=== PATIENT | male | born 1970 | race Caucasian/White ===

== ENCOUNTER 2024-03-05 09:05 | Observation (INO) ==
--- NOTE | 2024-03-05 09:22 | ED.PDOC ---
General ED Provider: Dr. GITA NAVA MD Chief Complaint: Headache Stated Complaint: Patient is a 53-year-old male that reported to the emergency department with a headache x 2 days. Patient stated that yesterday he started to have vision changes in the right eye due to his headache. Patient stated that he does have a history of migraines but has not had one in a long time. Patient also states that he has a history of hypertension but does not take blood pressure medications and has not taken them in over a year. Patient stated that for his headaches he is trying to take Lortab and [id number] NSAIDs with minimal relief. Patient was found to have a blood pressure of 188/123 in the emergency department today. Patient states that most of his headache is frontal and around his right eye. Patient denied any falls or loss of consciousness recently. Patient denies anything making his headache better. Patient states that exertion makes his headaches worse. Patient is also stated that he has had some shortness of breath with exertion that is intermittent. Patient states that he smokes 2 packs of cigarettes daily. Patient denies any chest pain, nausea, vomiting, diarrhea, dizziness, syncope, loss of consciousness, fever, sore throat, or any other acute symptoms not mentioned in the HPI. Time Seen by Provider: 03/05/24 09:06 Mode of Arrival: Walk-In Information Source: Patient Exam Limitations: No limitations Primary Care Provider: RITA MAZARIEGOS Nursing and Triage Documentation Reviewed and Agree: Yes Does Patient Take Opioids?: Yes Is Patient Opioid Naive?: No What is Opioid Naive?: *Opioid Naive implies the patient is not already taking opioids or not chronically receiving opioids on a daily basis. *PRN dosing is not "usually" associated with tolerance. *Patients are at higher risk of over-sedation and aspiration. Is Patient Opioid Tolerant?: No What is Opioid Tolerant?: *Opioid Tolerance implies less than the expected response to an opioid. *Acquired tolerance is defined by the patient taking 60mg of oral morphine daily (or equianalgesic dose of another opioid) for 1 week or more. *Often associated with chronic pain. *May take more than usual dose to achieve desired pain control. Review of Systems Review Of Systems Constitutional: Reports No symptoms Eyes: Reports Blurred vision (Right eye with headache) Ears, Nose, Mouth, Throat: Reports No symptoms Respiratory: Reports No symptoms Cardiac: Reports No symptoms GI: Reports No symptoms : Reports No symptoms Musculoskeletal: Reports No symptoms Skin: Reports No symptoms Neurological: Reports Headache (Predominantly frontal headache.) Endocrine: Reports No symptoms Hematologic/Lymphatic: Reports No symptoms All Other Systems: Reviewed and Negative Physical Exam Physical Exam Appearance: Reports Well-appearing, No pain distress and Well-nourished Ill-appearing: None Pain Distress: None Eyes: Reports KASEY, EOMI and Conjunctiva clear ENT: Reports Ears normal, Nose normal and Oropharynx normal Neck: Supple Respiratory: Reports Airway patent, Breath sounds clear, Breath sounds equal and Respirations nonlabored Cardiovascular: Reports RRR, Pulses normal, No rub and No murmur GI/: Reports Soft, Nontender, No masses, Bowel sounds normal and No Organomegaly Musculoskeletal: Reports Normal strength, ROM intact, No edema and No calf tenderness Skin: Reports Warm, Dry and Normal color Neurological: Reports Sensation intact, Motor intact, Reflexes intact, Cranial nerves intact, Alert and Oriented Psychiatric: Reports Affect appropriate and Mood appropriate NIH Stroke Scale 1a. Level of Consciousness: 0=Alert and keenly responsive 1b. Level of Consciousness Questions: 0=Answers correctly to two questions 1c. Level of Consciousness Commands: 0=Performs two tasks correctly 2. Best Gaze: 0=Normal 3. Visual: 0=No visual loss 4. Facial Palsy: 0=Normal 5a. Motor Left Arm: 0=No drift,arm holds 90 degrees for 10 sec., leg 30 degrees for 5 sec. 5b. Motor Right Arm: 0=No drift,arm holds 90 degrees for 10 sec., leg 30 degrees for 5 sec. 6a. Motor Left Le=No drift,arm holds 90 degrees for 10 sec., leg 30 degrees for 5 sec. 6b. Motor Right Le=No drift,arm holds 90 degrees for 10 sec., leg 30 degrees for 5 sec. 7. Limb Ataxia: 0=Absent 8. Sensory: 0=Normal 9. Best Language: 0=No aphasia 10. Dysarthria: 0=Normal 11. Extincion and Inattention: 0=Normal Stroke Scale Total: 0 Interpretation EKG Interpretation EKG Interpretation By: ED Physician Time of EKG #1: 09:28 Rate: Normal Rhythm: Sinus Ectopy: None [place]: NL ST Segment: Normal Radiology Interpretation Radiology Interpretation By: ED Physician Radiology Results: Negative Exam Interpreted: CXR Critical Care Note Critical Care Note Total Critical Care Time (mins): 60 Comments: Authorized and Performed by:Gita Nava MD, MPH Total critical care time: 60 minutes Due to a high probability of clinically significant, life threatening deterioration, the patient required my highest level of preparedness to intervene emergently and I personally spent this critical care time directly and personally managing the patient. This critical care time included obtaining a history; examining the patient; pulse oximetry; ordering and review of studies; arranging urgent treatment with development of a management plan; evaluation of patient's response to treatment; frequent reassessment; and, discussions with other providers. This critical care time was performed to assess and manage the high probability of imminent, life-threatening deterioration that could result in multi-organ failure. It was exclusive of separately billable procedures and treating other patients and teaching time. Please see MDM section and the rest of the note for further information on patient assessment and treatment. Course Course 03/05/24 09:23 03/05/24 09:23 Orders, Labs, Meds: Lab Review 03/05/24 03/05/24 09:23 09:25 WBC 9.75 RBC 5.15 Hgb 14.3 Hct 41.7 L MCV 81.0 MCH 27.8 MCHC 34.3 RDW Coeff of Darryl 12.8 Plt Count 224 Immature Gran % (Auto) 0.2 Neut % (Auto) 72.8 Lymph % (Auto) 21.4 Grainger % (Auto) 3.7 Eos % (Auto) 1.0 Baso % (Auto) 0.9 Neut # (Auto) 7.1 H Lymph # (Auto) 2.1 Grainger # (Auto) 0.4 Eos # (Auto) 0.1 Baso # (Auto) 0.1 Immature Gran # (Auto) 0.0 Sodium 138.8 Potassium 4.12 Chloride 101.8 Carbon Dioxide 27.2 Anion Gap 13.92 BUN 9.0 Creatinine 1.02 Estimated GFR (MDRD) 77.00 BUN/Creatinine Ratio 8.82 Glucose 105.9 Calcium 9.63 Total Bilirubin 0.51 AST 27.3 ALT 24.1 Alkaline Phosphatase 94.5 Troponin I < 0.012 NT-Pro-B Natriuret Pep 102 Total Protein 8.83 H Albumin 5.15 H Globulin 3.68 Albumin/Globulin Ratio 1.39 Influ A Molecular Assay Negative by naat Influ B Molecular Assay Negative by naat SARS CoV-2 RNA Rapid YUE Negative Orders Category Date Time Status EKG-(ED ONLY) Stat CARDIO 03/05/24 09:14 Completed ED APPLY O2 .ONCE EMERGENCY 03/05/24 09:14 Active ED TAKE OUT WAITER APPLIED .ONCE EMERGENCY 03/05/24 09:14 Active CBC W/ AUTO DIFF Stat LAB 03/05/24 09:23 Completed COMPREHENSIVE METABOLIC PANEL Stat LAB 03/05/24 09:23 Completed FLU A/B MOLECULAR Stat LAB 03/05/24 09:25 Completed NT-PROBNP(ED) Stat LAB 03/05/24 09:23 Completed SARS COV-2 RNA RAPID YUE Stat LAB 03/05/24 09:25 Completed TROPONIN I Stat LAB 03/05/24 09:23 Completed Hydralazine HCl Meds 03/05/24 09:14 Discontinued 10 mg IVP ONCE STA Labetalol HCl [Trandate] Meds 03/05/24 10:01 Discontinued 20 mg IVP ONCE ONE Nicardipine in NaCl, Iso-Osm [Cardene 20 mg/200 ml NaCl Meds 03/05/24 11:00 Active ] 20 mg in 200 ml IV TITRATION Sodium Chloride 0.9% [Sodium Chloride] 1,000 ml Meds 03/05/24 09:16 Discontinued IV BOLUS CHEST, 1V AP ONLY Stat RADS 03/05/24 09:[address] HEAD W/O CONTRAST Stat RADS 03/05/24 09:14 Completed Medications Generic Name Dose Route Start Last Admin Trade Name Freq PRN Reason Stop Dose Admin Nicardipine/Sodium Chloride 20 mg in 200 mls @ 50 mls/hr 03/05/24 11:00 03/05/24 10:50 Cardene 20 Mg/200 Ml Nacl IV 5 mg/hr TITRATION MERLYN 50 mls/hr Administration Protocol 5 MG/HR Discontinued Medications Generic Name Dose Route Start Last Admin Trade Name Freq PRN Reason Stop Dose Admin Hydralazine HCl 10 mg 03/05/24 09:14 03/05/24 09:27 Hydralazine Hcl 20 Mg/Ml Sdv IVP 03/05/24 09:15 10 mg ONCE STA Administration Sodium Chloride 1,000 mls @ 1,000 mls/hr 03/05/24 09:16 03/05/24 09:27 Sodium Chloride IV 03/05/24 10:15 1,000 mls/hr BOLUS ONE Administration Labetalol HCl 20 mg 03/05/24 10:01 03/05/24 10:09 Labetalol Hcl 20 Mg/4 Ml Disp.Syrin IVP 03/05/24 10:02 20 mg ONCE ONE Administration Vital Signs: Temp Pulse Resp BP Pulse Ox 03/05/24 10:01 76 20 201/97 H 97 03/05/24 09:10 97.8 F 97 18 188/127 H 100 Physician Progress Note: Patient is a 53-year-old male that reported to the emergency department with a headache x 2 days. Patient stated that yesterday he started to have vision changes in the right eye due to his headache. Patient stated that he does have a history of migraines but has not had one in a long time. Patient also states that he has a history of hypertension but does not take blood pressure medications and has not taken them in over a year. Patient stated that for his headaches he is trying to take Lortab and [id number] NSAIDs with minimal relief. Patient was found to have a blood pressure of 188/123 in the emergency department today. Patient states that most of his headache is frontal and around his right eye. Patient denied any falls or loss of consciousness recently. Patient denies anything making his headache better. Patient states that exertion makes his headaches worse. Patient is also stated that he has had some shortness of breath with exertion that is intermittent. Patient states that he smokes 2 packs of cigarettes daily. Patient denies any chest pain, nausea, vomiting, diarrhea, dizziness, syncope, loss of consciousness, fever, sore throat, or any other acute symptoms not mentioned in the HPI. -Due to the patient's headache with visual changes will order CT of the head without contrast to rule out bleed or other intracranial pathology. -Will give the patient IV fluids 1 L normal saline bolus. -Will order baseline labs, an EKG, and a chest x-ray. -Will give IV hydralazine 10 mg for BP of 188/125. -EKG shows normal sinus rhythm with a rate of 82 bpm. No acute diagnostic ST elevations noted. Normal axis noted. -CBC unremarkable. Chest x-ray shows no acute cardiopulmonary disease. -After the hydralazine the patient's blood pressure is still 201/97. Will give IV labetalol 20 mg. -After the labetalol treatment patient's blood pressure still 201/94. Will start a nicardipine drip at 5 mg/hr. -Will contact hospitalist for admission for hypertensive urgency. -CT of the head shows no acute intracranial bleed or pathology. [phone]) called hospitalist for admission for hypertensive urgency. Left message on her voicemail. Waiting for callback. [phone]) spoke to hospitalist about patient's current hypertensive urgency. Told her that we had tried IV labetalol 20 mg, and IV hydralazine 10 mg with no change in the patient's hypertensive urgency. Gave her the patient's current blood pressure of 204/104. Told hospitalist that we are starting patient on a nicardipine drip at 5 mg/h. Explained that the patient had a normal EKG with a negative troponin. Hospitalist has agreed to admit patient for inpatient services and telemetry monitoring. Discharge Plan Discharge Patient Disposition: ADMITTED INPATIENT Discharge Problem: Headache, Hypertensive urgency, Cigarette smoker, Hx of medication noncompliance Did you review [place] REGISTERED ASSOCIATE for ALL controlled substances?: Not Applicable ED Provider: GITA NAVA Condition: Stable Joshua Coma Scale Joshua Coma Scale Eye Opening Response: Spontaneously Best Verbal Response: Oriented to Time, Place, and Person Best Motor Resposne: Obeys Commands [place] Coma Scale Score Total: 15 Response Scores: Best Response = 15 Comatose Client = 8 or Less Totally Unresponsive = 3
[2024-03-05] MEDS: HYDRALAZINE HCL IVP STA (09:27)
[2024-03-05] MEDS: SODIUM CHLORIDE 1,000 ML IV ONE (09:27)
[2024-03-05 09:28] LABS: BASOPHILS # (AUTO) 0.1 K/uL (0-0.2); BASOPHILS % (AUTO) 0.9 % (0.0-3.0); EOSINOPHILS # (AUTO) 0.1 K/ul (0.0-0.7); HEMATOCRIT 41.7 % (42.0-52.0); HEMOGLOBIN 14.3 g/dl (14.0-18.0); IMMATURE GRANULOCYTE % (AUTO) 0.2 % (0.0-5.0); LYMPHOCYTES # (AUTO) 2.1 K/uL (0.60-3.4); LYMPHOCYTES % (AUTO) 21.4 (10.0-50.0); MEAN CORPUSCULAR HEMOGLOBIN 27.8 pg (27.0-31.0); MEAN CORPUSCULAR HGB CONC 34.3 (31.8-35.4); MONOCYTES # (AUTO) 0.4 K/uL (0.4-2.0); MONOCYTES % (AUTO) 3.7 (0-10); NEUTROPHILS # (AUTO) 7.1 K/ul (2.0-6.9); NEUTROPHILS % (AUTO) 72.8 % (42.2-75.2); PLATELET COUNT 224 10^3/uL (140-440); RDW COEFFICIENT OF VARIATION 12.8 % (11.6-14.8); RED BLOOD COUNT 5.15 10^6/ul (4.70-6.10); WHITE BLOOD COUNT 9.75 K/ul (4.2-10.2)
[2024-03-05 09:42] LABS: ALANINE AMINOTRANSFERASE 24.1 U/L (0-50); ALBUMIN 5.15 g/dL (3.5-5.0); ALKALINE PHOSPHATASE 94.5 U/L (38-126); ASPARTATE AMINO TRANSFERASE 27.3 U/L (17-59); BILIRUBIN,TOTAL 0.51 mg/dL (0.2-1.3); CALCIUM 9.63 mg/dL (8.4-10.2); CARBON DIOXIDE 27.2 mmol/L (22-30.0); CHLORIDE 101.8 mmol/L (98-107); CREATININE 1.02 mg/dL (0.60-1.10); GLUCOSE 105.9 mg/dL (74-106); POTASSIUM 4.12 mmol/L (3.5-5.1); SODIUM 138.8 mmol/L (134.5-145); TOTAL PROTEIN 8.83 g/dL (6.3-8.2)
[2024-03-05 09:53] LABS: MOLECULAR FLU A NEGATIVE BY NAAT (NEGATIVE); MOLECULAR FLU B NEGATIVE BY NAAT (NEGATIVE); SARS COV-2 RNA RAPID NAAT NEGATIVE (NEGATIVE)
[2024-03-05 09:53] LABS: TROPONIN I < 0.012 ng/ml (0.0000-0.120)
[2024-03-05] MEDS: TRANDATE IVP ONE (10:09)
--- NOTE | 2024-03-05 10:12 | DI ---
EXAM: CHEST RADIOGRAPH TECHNIQUE: Single frontal chest radiograph. HISTORY: Shortness of breath. COMPARISON: 04/06/2022 FINDINGS: Mild atelectasis of the left base. No pulmonary infiltrate is identified. No pleural effusion or pneumothorax is seen. Heart size is normal. No acute displaced rib fractures are identified. Eggshell calcification of the left upper quadrant, grossly stable, benign. IMPRESSION: 1. No acute findings in the chest.
--- NOTE | 2024-03-05 10:16 | CT ---
EXAM: CT HEAD WITHOUT CONTRAST. HISTORY: Headache for 2 days, visual changes. COMPARISON: None. TECHNIQUE: Multiple axial images of the brain were obtained from the skull base through the vertex w ithout intravenous contrast. Multiplanar reformats were provided. FINDINGS: There is no intracranial hemorrhage or extraaxial collection. The richter-white differentiat ion is maintained without evidence for acute large vascular territory infarction. The cortical sulci and basal cisterns are well visualized. There is no hydrocephalus, mass effect, or midline shift. The paranasal sinuses and mastoid air cells are clear. The calvarium is intact. IMPRESSION: No acute intracranial abnormality. All CT scans are performed using dose optimization techniques as appropriate to the performed exam an d include at least one of the following: Automated exposure control, adjustment of the mA and/or kV according t o size, and the use of iterative reconstruction technique.
[2024-03-05] MEDS: CARDENE 20 MG/200 ML NACL 20 MG/200 ML BAG IV SCH (10:50)
[2024-03-05 12:21] VITALS: BMI 27.7
[2024-03-05] MEDS ORDERED: CARDENE 20 MG/200 ML NACL 20 MG/200 ML BAG IV SCH (13:30)
[2024-03-05] MEDS ORDERED: PROCARDIA XL PO ONE (14:30)
[2024-03-05] MEDS: PROCARDIA XL PO ONE (14:46)
[2024-03-05] MEDS: TYLENOL PO PRN (14:47)
--- NOTE | 2024-03-05 17:38 | PCM ---
Date of Service Date Seen by Provider: 03/05/24 Admit Day/Time Admission Date: 03/05/24 Reason for Admission Chief Complaint: HYPERTENSION URGENCY Hospital Provider Hospital Provider: JERAMIE QUINTEROS, [facility] [place] Primary Care Physician: RITA MAZARIEGOS History of Present Illness History of Present Illness: 54 yo male presented to the ER with headache and blurry vision. Patient states that he has pmh of high blood pressure and took himself off of his blood pressure medication over a year ago because he "didn't like how it made him feel." Unsure what he was on previously. Initially BP was 200s/100s in ER. After multiple doses of hydralazine and labetalol with no effect, a cardene gtt was started. All labs and imaging unremarkable. Patient reports headache that starts in his neck and radiates to the top of his head and down to his forehead. Blurry vision has subsided at this time. Denies chest pain, sob, fever. Reports he does have lower extremity swelling on a regular basis. Admitted to med/surg observation. Checked EPIC for previously prescribed medications and patient was taking losartan 50 mg and atorvastatin 20 mg. Case Discussed With Case Discussed With: Patient's case was discussed with the ER Physicians, Dr. Nava. [facility] Medical History (Updated 03/05/24 @ 17:30 by JERAMIE QUINTEROS) Hypertension I10 - Essential (primary) hypertension (ICD-10) Hyperlipidemia E78.5 - Hyperlipidemia, unspecified (ICD-10) Family History MATERNAL GRANDMOTHER Hypercholesteremia Diabetes Hypertension Mother Hypertension PATERNAL GRANDFATHER Hypertension Social History Smoking and tobacco status: Current every day smoker Substance use type: marijuana Allergies Allergies Allergy/AdvReac Type Severity Reaction Status Date / Time No Known Allergies Allergy Unverified 03/05/24 09:18 Current Medications Home Medications clonidine HCl 0.1 mg tablet 0.1 mg PO BID #14 tabs 04/06/22 [Rx Confirmed 03/05/24 Last Taken Unknown] methylprednisolone 4 mg tablets in a dose pack (Medrol (Umair)) 4 mg PO DAILY #21 ea 04/06/22 [Rx Confirmed 03/05/24 Last Taken Unknown] aspirin 81 mg tablet,delayed release (Adult Aspirin Regimen) 81 mg PO DAILY 03/05/24 [History Confirmed 03/05/24 Last Taken Unknown] ibuprofen 200 mg tablet 200 mg PO 3-4XD PRN pain 03/05/24 [History Confirmed 03/05/24 Last Taken Unknown] Home Acetaminophen (Acetaminophen 325 Mg Tablet) 650 mg PO Q4H PRN PRN Reason: Mild Pain Last Admin: 03/05/24 14:47 Dose: 650 mg Hydralazine HCl (Hydralazine Hcl 20 Mg/Ml Sdv) 10 mg IVP Q6H PRN PRN Reason: Hypertension Nicardipine/Sodium Chloride (Cardene 20 Mg/200 Ml Nacl) 20 mg in 200 mls @ 50 mls/hr IV TITRATION MERLYN; Protocol Last Titration: 03/05/24 14:46 Dose: Infused Lisinopril (Lisinopril 10 Mg Tablet) 10 mg PO BID MERLYN Nifedipine (Nifedipine 30 Mg Tab.Er.24) 30 mg PO DAILY MERLYN Discontinued Medications Hydralazine HCl (Hydralazine Hcl 20 Mg/Ml Sdv) 10 mg IVP ONCE STA Stop: 03/05/24 09:15 Last Admin: 03/05/24 09:27 Dose: 10 mg Sodium Chloride (Sodium Chloride) 1,000 mls @ 1,000 mls/hr IV BOLUS ONE Stop: 03/05/24 10:15 Last Infusion: 03/05/24 12:50 Dose: Infused Labetalol HCl (Labetalol Hcl 20 Mg/4 Ml Disp.Syrin) 20 mg IVP ONCE ONE Stop: 03/05/24 10:02 Last Admin: 03/05/24 10:09 Dose: 20 mg Nifedipine (Nifedipine 30 Mg Tab.Er.24) 30 mg PO ONCE ONE Stop: 03/05/24 14:33 Last Admin: 03/05/24 14:46 Dose: 30 mg Opioid Naive vs. Tolerant Does Patient Take Opioids?: No Is Patient Opioid Naive?: Yes What is Opioid Naive?: *Opioid Naive implies the patient is not already taking opioids or not chronically receiving opioids on a daily basis. *PRN dosing is not "usually" associated with tolerance. *Patients are at higher risk of over-sedation and aspiration. Is Patient Opioid Tolerant?: No What is Opioid Tolerant?: *Opioid Tolerance implies less than the expected response to an opioid. *Acquired tolerance is defined by the patient taking 60mg of oral morphine daily (or equianalgesic dose of another opioid) for 1 week or more. *Often associated with chronic pain. *May take more than usual dose to achieve desired pain control. Review of Systems Constitutional: Reports No symptoms Head: Reports Normocephalic Eyes: Reports Blurred vision Ears: Reports No symptoms Nose: Reports No symptoms Mouth: Reports No symptoms Throat: Reports No symptoms Cardiovascular: Reports High Blood Pressure Respiratory: Reports No symptoms Gastrointestinal: Reports No symptoms Genitourinary: Reports No Symptoms Musculoskeletal: Reports No symptoms Endocrine: Reports No symptoms Hematology: Reports No symptoms Immunology: Reports No symptoms Neurological: Reports Headache Psychiatric: Reports No symptoms Physical examination Most Recent Vital Signs: Most Recent Vital Signs Temperature 97.9 F 03/05/24 12:12 Temperature Source Oral 03/05/24 12:12 Temperature Source Infrared 03/05/24 09:10 Pulse Rate 94 03/05/24 17:00 Respiratory Rate 16 03/05/24 12:12 Blood Pressure 168/86 H 03/05/24 17:00 Blood Pressure Mean 113 03/05/24 17:00 Blood Pressure Left Arm 174/93 03/05/24 12:12 Blood Pressure Location Left Arm 03/05/24 17:00 Blood Pressure Position Supine 03/05/24 17:00 O2 Sat by Pulse Oximetry 98 03/05/24 12:12 Oxygen Delivery Method Room Air 03/05/24 17:10 Height 5 ft 11 in 03/05/24 12:12 Weight 198 lb 11.2 oz 03/05/24 12:12 Telemetry Type Remote Telemetry 03/05/24 13:00 Telemetry Monitoring Continues 03/05/24 13:00 Telemetry Heart Rate 77 03/05/24 13:00 EKG MA Interval 0.16 03/05/24 13:00 EKG QRS Interval 0.10 03/05/24 13:00 Telemetry Strip Reading SR 03/05/24 13:00 Appearance: Positive No Apparent Distress and Alert and Oriented x3 Skin: Positive Warm and Good Color HEENT: Positive Normocephalic, Atraumatic and PERRLA Neck: Positive Supple and Midline Trachea Chest/Lungs: Positive Symmetrical With Equal Breath Sounds, Clear to Auscultation Bilaterally and Good Air Movement all 4 Lung North Heart: Positive RRR, Pulses Normal, No S3 Auscultated and No S4 Auscultated GI/: Positive Soft, Nontender, Bowel Sounds Normal and No Distention Musculoskeletal: Positive Normal Gait and Station Extremities: Positive Intact Peripheral Pulses, Stable Joints Without Laxity and Good ROM in All Joints Neurological: Positive Sensation Intact, Motor intact, Alert, Oriented and Muscle Strength 5/5 in Upper and Lower Extremities Bilaterally Labs This Visit Labs This Visit: Labs This Visit 03/05/24 03/05/24 09:23 09:25 WBC 9.75 RBC 5.15 Hgb 14.3 Hct 41.7 L MCV 81.0 MCH 27.8 MCHC 34.3 RDW Coeff of Darryl 12.8 Plt Count 224 Immature Gran % (Auto) 0.2 Neut % (Auto) 72.8 Lymph % (Auto) 21.4 Bee % (Auto) 3.7 Eos % (Auto) 1.0 Baso % (Auto) 0.9 Neut # (Auto) 7.1 H Lymph # (Auto) 2.1 Bee # (Auto) 0.4 Eos # (Auto) 0.1 Baso # (Auto) 0.1 Immature Gran # (Auto) 0.0 Sodium 138.8 Potassium 4.12 Chloride 101.8 Carbon Dioxide 27.2 Anion Gap 13.92 BUN 9.0 Creatinine 1.02 Estimated GFR (MDRD) 77.00 BUN/Creatinine Ratio 8.82 Glucose 105.9 Calcium 9.63 Total Bilirubin 0.51 AST 27.3 ALT 24.1 Alkaline Phosphatase 94.5 Troponin I < 0.012 NT-Pro-B Natriuret Pep 102 Total Protein 8.83 H Albumin 5.15 H Globulin 3.68 Albumin/Globulin Ratio 1.39 Influ A Molecular Assay Negative by naat Influ B Molecular Assay Negative by naat SARS CoV-2 RNA Rapid YUE Negative Imaging Imaging: EXAM: CHEST RADIOGRAPH FINDINGS: Mild atelectasis of the left base. No pulmonary infiltrate is identified. No pleural effusion or pneumothorax is seen. Heart size is normal. No acute displaced rib fractures are identified. Eggshell calcification of the left upper quadrant, grossly stable, benign. IMPRESSION: 1. No acute findings in the chest. EXAM: CT HEAD WITHOUT CONTRAST. FINDINGS: There is no intracranial hemorrhage or extraaxial collection. The richter-white differentiation is maintained without evidence for acute large vascular territory infarction. The cortical sulci and basal cisterns are well visualized. There is no hydrocephalus, mass effect, or midline shift. The paranasal sinuses and mastoid air cells are clear. The calvarium is intact. IMPRESSION: No acute intracranial abnormality. Review Statement Review Statement: I have independently reviewed and interpreted the labs/EKGs/imaging that were ordered by the ER provider. I have reviewed all outside records that are available currently in our EMR including imaging/notes/labs from previous visits. Plan Plan: 1. Hypertensive Urgency - cardene gtt per protocol completed, lisinopril bid and nifedipine ER daily - will adjust regimen if needed, hydralazine ordered prn for SBP>170 and DBP>90 2. Hyperlipidemia - chronic, not taking his medications DVT Prophylaxis: Ambulation Time Spent: Greater than 80 minutes spent with patient, 50% of the time spent with this patient was devoted to counseling and coordination of care. [facility] Plannin minutes spent discussing advance care planning. Smoking Cessation: 3-10 minutes spent discussing smoking cessation. Disposition: Admit to: Med/Surg Observation Full Code Discussed Plan of Care with Dr. Sonia Haile. Medications Medication Orders: Medications Ordered Category Date Time Status Acetaminophen [Tylenol] Meds 03/05/24 12:20 Active 650 mg PO Q4H PRN Hydralazine HCl Meds 03/05/24 14:36 Active 10 mg IVP Q6H PRN Lisinopril [Zestril] Meds 03/05/24 21:00 Active 10 mg PO BID Nicardipine in NaCl, Iso-Osm [Cardene 20 mg/200 ml NaCl Meds 03/05/24 11:00 Active ] 20 mg in 200 ml IV TITRATION Nifedipine [Procardia Xl] Meds 03/06/24 09:00 Active 30 mg PO DAILY
[2024-03-05] MEDS: HYDRALAZINE HCL IVP PRN (17:45)
[2024-03-05] MEDS ORDERED: TORADOL IVP ONE (18:34)
[2024-03-05] MEDS: LOPRESSOR IVP STA (18:34)
[2024-03-05] MEDS: TORADOL ONE (18:35)
[2024-03-05] MEDS: LOPRESSOR ONE (18:45)
[2024-03-05] MEDS: TORADOL IVP ONE (18:45)
[2024-03-05] MEDS: ZESTRIL PO SCH (20:18)
[2024-03-05] MEDS: NICODERM 21 MG TD SCH ×2 (20:18→21:04)
[2024-03-06] MEDS: TORADOL IVP PRN (00:39)
[2024-03-06 05:28] LABS: BASOPHILS # (AUTO) 0.1 K/uL (0-0.2); BASOPHILS % (AUTO) 0.7 % (0.0-3.0); EOSINOPHILS # (AUTO) 0.1 K/ul (0.0-0.7); EOSINOPHILS % (AUTO) 1.1 % (0.0-7.0); HEMATOCRIT 41.1 % (42.0-52.0); HEMOGLOBIN 13.9 g/dl (14.0-18.0); IMMATURE GRANULOCYTE % (AUTO) 0.4 % (0.0-5.0); LYMPHOCYTES % (AUTO) 23.8 (10.0-50.0); MEAN CORPUSCULAR HEMOGLOBIN 27.3 pg (27.0-31.0); MEAN CORPUSCULAR HGB CONC 33.8 (31.8-35.4); MEAN CORPUSCULAR VOLUME 80.7 fl (80.0-94.0); MONOCYTES # (AUTO) 0.3 K/uL (0.4-2.0); MONOCYTES % (AUTO) 3.5 (0-10); NEUTROPHILS % (AUTO) 70.5 % (42.2-75.2); PLATELET COUNT 214 10^3/uL (140-440); RDW COEFFICIENT OF VARIATION 12.7 % (11.6-14.8); RED BLOOD COUNT 5.09 10^6/ul (4.70-6.10); WHITE BLOOD COUNT 8.49 K/ul (4.2-10.2)
[2024-03-06 05:44] LABS: ALANINE AMINOTRANSFERASE 21.2 U/L (0-50); ALBUMIN 4.78 g/dL (3.5-5.0); ALKALINE PHOSPHATASE 89.9 U/L (38-126); ASPARTATE AMINO TRANSFERASE 25.2 U/L (17-59); BILIRUBIN,TOTAL 0.6 mg/dL (0.2-1.3); BLOOD UREA NITROGEN 11.8 mg/dL (9-20); CALCIUM 9.49 mg/dL (8.4-10.2); CARBON DIOXIDE 24.1 mmol/L (22-30.0); CHLORIDE 105.1 mmol/L (98-107); CREATININE 1.07 mg/dL (0.60-1.10); GLUCOSE 106.7 mg/dL (74-106); POTASSIUM 3.98 mmol/L (3.5-5.1); SODIUM 139.7 mmol/L (134.5-145)
[2024-03-06] MEDS: PROCARDIA XL PO SCH (08:23)
[2024-03-06] MEDS: NICODERM 21 MG TD SCH (08:23)
[2024-03-06 09:05] VITALS: BP 146/89; PULSE 79; RESP 18; TEMP 98.2
--- NOTE | 2024-03-06 09:44 | DCSUM ---
Admission Date Admission Date: 03/05/24 Discharge Date Discharge Date: 03/06/24 Admission Diagnosis Admission Diagnosis: 1. Hypertensive Urgency 2. Hyperlipidemia Discharge Diagnosis Discharge Diagnosis: 1. Hypertensive Urgency - Resolved 2. Hyperlipidemia - chronic, stable Hospital Provider Hospital Provider: JERAMIE QUINTEROS, [facility] [place] Primary Care Physician Primary Care Physician: RITA MAZARIEGOS Summary of History and Physical Summary of History and Physical: 54 yo male presented to the ER with headache and blurry vision. Patient states that he has pmh of high blood pressure and took himself off of his blood pressure medication over a year ago because he "didn't like how it made him feel." Unsure what he was on previously. Initially BP was 200s/100s in ER. After multiple doses of hydralazine and labetalol with no effect, a cardene gtt was started. All labs and imaging unremarkable. Patient reports headache that starts in his neck and radiates to the top of his head and down to his forehead. Blurry vision has subsided at this time. Denies chest pain, sob, fever. Reports he does have lower extremity swelling on a regular basis. Admitted to med/surg observation. Checked EPIC for previously prescribed medications and patient was taking losartan 50 mg and atorvastatin 20 mg. Hospital Course Subjective: During stay, patient was on cardene gtt and weaned off. He was transitioned to PO nifedipine and lisinopril. Symptoms improved. Headache persisted today. He was given treatment with toradol, benadryl, and steroids. Discussed extensively to limit stress, caffeine, and other aggravating factors for hypertension. Discussed risks of leaving blood pressure uncontrolled. Labs and VSS prior to discharge. Follow up with PCP next week. Appearance: Pleasant, No Apparent Distress and Alert HEENT: MMM and Supple CVS: No Murmur Abdomen: Soft Respiratory: No Dyspnea Extremities: No Edema Vital Signs: Most Recent Vital Signs Temperature 98.2 F 03/06/24 08:00 Temperature Source Temporal Artery Scan 03/06/24 08:00 Temperature Source Infrared 03/05/24 09:10 Pulse Rate 79 03/06/24 08:00 Respiratory Rate 18 03/06/24 08:00 Blood Pressure 146/89 H 03/06/24 08:00 Blood Pressure Mean 108 03/06/24 08:00 Blood Pressure Left Arm 174/93 03/05/24 12:12 Blood Pressure Location Left Arm 03/06/24 08:00 Blood Pressure Position Supine 03/06/24 08:00 O2 Sat by Pulse Oximetry 99 03/06/24 08:00 Oxygen Delivery Method Room Air 03/06/24 09:00 Height 5 ft 11 in 03/05/24 12:12 Weight 198 lb 11.2 oz 03/05/24 12:12 Telemetry Type Remote Telemetry 03/06/24 07:00 Telemetry Monitoring Continues 03/06/24 07:00 Telemetry Heart Rate 84 03/06/24 07:00 Telemetry SPO2 98 03/05/24 19:00 EKG NC Interval 0.16 03/06/24 07:00 EKG QRS Interval 0.10 03/06/24 07:00 Telemetry Strip Reading SR 03/06/24 07:00 Imaging: EXAM: CT HEAD WITHOUT CONTRAST. HISTORY: Headache for 2 days, visual changes. COMPARISON: None. TECHNIQUE: Multiple axial images of the brain were obtained from the skull base through the vertex without intravenous contrast. Multiplanar reformats were provided. FINDINGS: There is no intracranial hemorrhage or extraaxial collection. The richter-white differentiation is maintained without evidence for acute large vascular territory infarction. The cortical sulci and basal cisterns are well visualized. There is no hydrocephalus, mass effect, or midline shift. The paranasal sinuses and mastoid air cells are clear. The calvarium is intact. IMPRESSION: No acute intracranial abnormality. Lab Results Last 24 Hours: 03/06/24 03/05/24 03/05/24 04:54 09:25 09:23 WBC 8.49 RBC 5.09 Hgb 13.9 L Hct 41.1 L MCV 80.7 MCH 27.3 MCHC 33.8 RDW Coeff of Darryl 12.7 Plt Count 214 Immature Gran % (Auto) 0.4 Neut % (Auto) 70.5 Lymph % (Auto) 23.8 [place] % (Auto) 3.5 Eos % (Auto) 1.1 Baso % (Auto) 0.7 Neut # (Auto) 6.0 Lymph # (Auto) 2.0 [place] # (Auto) 0.3 L Eos # (Auto) 0.1 Baso # (Auto) 0.1 Immature Gran # (Auto) 0.0 Sodium 139.7 138.8 Potassium 3.98 4.12 Chloride 105.1 101.8 Carbon Dioxide 24.1 27.2 Anion Gap 14.48 13.92 BUN 11.8 9.0 Creatinine 1.07 1.02 Estimated GFR (MDRD) 73.00 77.00 BUN/Creatinine Ratio 11.02 8.82 Glucose 106.7 H 105.9 Calcium 9.49 9.63 Total Bilirubin 0.60 0.51 AST 25.2 27.3 ALT 21.2 24.1 Alkaline Phosphatase 89.9 94.5 Troponin I < 0.012 NT-Pro-B Natriuret Pep 102 Total Protein 8.00 8.83 H Albumin 4.78 5.15 H Globulin 3.22 3.68 Albumin/Globulin Ratio 1.48 1.39 Influ A Molecular Assay Negative by naat Influ B Molecular Assay Negative by naat SARS CoV-2 RNA Rapid YUE Negative Discharge Instructions Discharge Planning: Discharge Planning > 40 minutes If patient is discharged with left ventricular systolic dysfunction: NA Discharged with a beta des? [] If no, why not? [] Discharged with an nav/arb? [] If no, why not? [] Diagnosis: Hypertensive Urgency Diet: Cardiac/low salt, limit your caffeine intake Activity: as tolerated Follow-up with PCP next week. Medications: Lisinopril 10 mg twice a day, Nifedipine 30 mg daily Discharge Medications: Medications at Discharge (Home Meds & RX) clonidine HCl 0.1 mg tablet 0.1 mg PO BID #14 tabs 04/06/22 methylprednisolone 4 mg tablets in a dose pack (Medrol (Umair)) 4 mg PO DAILY #21 ea 04/06/22 aspirin 81 mg tablet,delayed release (Adult Aspirin Regimen) 81 mg PO DAILY 03/05/24 ibuprofen 200 mg tablet 200 mg PO 3-4XD PRN pain 03/05/24 Discharge Plan Discharge Discharge Orders: Discharge Patient (ONCE); Ordered 03/06/24 Ordered By: NIRMAL ALMAGUER Activity Restrictions/Additional Instructions: Diagnosis: Hypertensive Urgency Diet: Cardiac/low salt, limit your caffeine intake Activity: as tolerated Follow-up with PCP next week. Medications: Lisinopril 10 mg twice a day, Nifedipine 30 mg daily Instructions: How to Stop Smoking (ED), Hypertensive Crisis (ED) Patient Disposition: HOME SELF-CARE Prescriptions: New nifedipine 30 mg Tablet Extended Release 24hr 30 mg PO DAILY Qty: 30 0RF lisinopril 10 mg Tablet 10 mg PO BID Qty: 60 0RF Continued aspirin [Adult Aspirin Regimen] 81 mg tablet,delayed release (DR/EC) 81 mg PO DAILY ibuprofen 200 mg tablet 200 mg PO 3-4XD PRN (Reason: pain) Discontinued methylprednisolone [Medrol (Umair)] 4 mg tablets,dose pack 4 mg PO DAILY Qty: 21 0RF clonidine HCl 0.1 mg tablet 0.1 mg PO BID Qty: 14 0RF 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
[2024-03-06] MEDS: TORADOL IVP ONE (10:14)
[2024-03-06] MEDS: BENADRYL IVP STA (10:15)
[2024-03-06] MEDS: DECADRON IVP ONE (10:16)
== END 2024-03-06 10:45 | disposition home or self-care (01) ==
LOC: ED 09:05 → INTOOBSV 11:34 → SCU 11:34
PROVIDERS: ADMIT Hospitalist; ATTEND Nurse Practitioner Family
DX: I16.0 Hypertensive urgency; R51.9 Headache, unspecified; Z20.822 Contact with and (suspected) exposure to COVID-19; I10 Essential (primary) hypertension; Z91.199 Patient's noncompliance with other medical treatment and regimen due to unspecified reason; E78.5 Hyperlipidemia, unspecified; F17.210 Nicotine dependence, cigarettes, uncomplicated; R06.02 Shortness of breath